=== PATIENT | female | born 1960 | race Native Hawaiian/Other Pacific Islander ===

== ENCOUNTER 2016-07-25 20:23 | Observation (INO) | payer BC ==
[~2016-07-25] VITALS: Ht 152.4 cm; Wt 93.7 kg
[~2016-07-25 20:23] MED LIST: BENZONATATE100 MG PO; CIPRO500 MG PO; EQL ASPIRIN325 MG OR; LEVO500T PO; LISINOP/HCTZ1 TA2 PO; MECL25TA84 PO; MEDROL DOSEPAK4 MG OR; PEPCID20 MG PO; TOPICORT LP EX
[2016-07-25 20:30] VITALS: BP 187/76; TEMP 98.2
[2016-07-25 20:48] LABS: PLATELET COUNT 322 K/uL (152-353)
[2016-07-25 20:52] LABS: POTASSIUM 3.7 mmol/L (3.6-5.2); SODIUM 137 mmol/L (136-145)
[2016-07-25 21:01] LABS: PARTIAL THROMBOPLASTIN TIME 24.1 SECONDS (24.5-33.6)
[2016-07-25 22:58] VITALS: BP 127/64; TEMP 98.3; Ht 152.4 cm; Wt 93.7 kg
[2016-07-26] VITALS: BP 127/64; TEMP 98.3
[2016-07-26 04:00] VITALS: BP 117/78; TEMP 98.2
[2016-07-26 08:00] VITALS: BP 123/68; TEMP 98.3
[2016-07-26 11:59] LABS: PLATELET COUNT 318 K/uL (152-353)
[2016-07-26 12:00] VITALS: BP 157/76; TEMP 98
[2016-07-26 12:38] LABS: POTASSIUM 3.9 mmol/L (3.6-5.2); SODIUM 134 mmol/L (136-145)
== END 2016-07-26 15:15 | disposition home or self-care (01) ==
LOC: ED 20:23 → MED/SURG 21:00
DX: R07.89 Other chest pain (principal); I10 Essential (primary) hypertension
CPT/HCPCS: 80053; 82550; 83735; 84484; 85027; 85610; 85651; 85730; 86140; 93005; 99220; 99284; G0378; J1650